=== PATIENT | male | born 1965 | race Caucasian/White ===

== ENCOUNTER → 2018-05-01 19:19 | Outpatient (CLI) | payer MEDICAID, SELFPAY ==
[2018-05-01 19:51] LABS: Basophils # 0.1 K/mm3 (0-0.2); Basophils % 0.8 % (0.1-2.0); Eosinophils # 0.4 K/mm3 (0.0-0.4); Eosinophils % 4.6 % (0.1-12.0); Hematocrit 50.2 % (42.0-52.0); Hemoglobin 16.1 g/dL (14.1-18.0); Lymphocytes # 2.2 K/mm3 (0.7-4.5); Lymphocytes % 23.8 % (10-50); Mean Corpuscular Hemoglobin 29.8 pg (27.0-31.2); Mean Corpuscular Volume 93.2 fl (80-94); Monocytes # 0.6 K/mm3 (0.1-1.0); Monocytes % 6.9 % (1.7-9.3); Neutrophils # 5.9 K/mm3 (1.8-7.8); Neutrophils % 63.8 % (37.0-80.0); Platelet Count 259 K/mm3 (142-424); Red Blood Count 5.39 M/mm3 (4.60-6.20); Red Cell Distribution Width 13.9 % (11.5-17.5); White Blood Count 9.2 K/mm3 (4.8-10.8)
[2018-05-01 20:33] LABS: Alanine Aminotransferase 46 U/L (12-78); Albumin Level 3.8 gm/dL (3.4-5.0); Albumin/Globulin Ratio 0.9 (1.1-1.8); Alkaline Phosphatase 95 U/L (46-116); Anion Gap 11.8 mEq/L (5-15); Aspartate Amino Transferase 22 U/L (15-37); Bilirubin,Total 0.6 mg/dL (0.2-1.0); Blood Urea Nitrogen 17 mg/dL (7-18); Calcium 8.9 mg/dL (8.5-10.1); Carbon Dioxide 32 mmol/L (21.0-32.0); Chloride 100 mmol/L (98-107); Chol/HDL Ratio 3.2 (1-3.5); Cholesterol 168 mg/dL (140-200); Creatinine,Serum 0.85 mg/dL (0.70-1.30); Estimated Glomerular Filt Rate 94 ml/min (>60); GFR (African American) 114 ML/MIN (>60); Globulin 4.2 gm/dl (1.3-3.2); Glucose 84 mg/dL (74-106); HDL Cholesterol 52 mg/dL (27-67); LDL Cholesterol 90 mg/dL (0-130); Potassium 3.8 mmoL/L (3.5-5.1); Sodium 140 mmol/L (136-145); T4 (Thyroxine) 8.8 ug/dl (4.7-13.3); Thyroid Stimulating Hormone 0.87 uIU/ml (0.358-3.740); Triglycerides 130 mg/dL (30-200); VLDL Cholesterol 26 mg/dL (0-40)
[2018-05-03 15:52] LABS: PSA, Free 0.15 ng/mL; Prostate Specific Ag 0.7 ng/mL (0.0-4.0); Vitamin D 25 Hydroxy 26.5 ng/mL (30.0-100.0)
[2018-05-04 12:16] LABS: Testosterone,Free 6.3 pg/mL (7.2-24.0)
== END ==
LOC: LAB 19:19 → LAB.DROPOF 05-02 09:26
PROVIDERS: PCP Physician Assistant; Visit Provider Physician Assistant
DX: E66.01 Morbid (severe) obesity due to excess calories (principal); R53.83 Other fatigue; E55.9 Vitamin D deficiency, unspecified
CPT/HCPCS: 80053; 80061; 82652; 84153; 84154; 84402; 84436; 84443; 85025

== ENCOUNTER → 2019-03-07 13:02 | Outpatient (CLI) | payer BC, SELFPAY ==
--- NOTE | 2019-03-07 13:08 | XR_ITS ---
PROCEDURE: XR KNEE LT 4V CLINICAL INDICATION: knee pain COMPARISON: KNEE3R KNEE-3 VIEWS-RT from 06/10/2015 FINDINGS: No fracture or dislocation. No lytic or blastic change. There is normal mineralization. There are mild tricompartmental osteoarthritic changes greatest at the medial compartment with decrease in the joint space and osteophyte formation. Other findings:None. IMPRESSION: Mild osteoarthritis Dictated by: Chriss Blair MD 03/07/2019 15:09 Electronically signed by Chriss Blair MD in [place] 03/07/2019 15:09
== END ==
PROVIDERS: PCP Emergency Medicine; Visit Provider Orthopaedic Surgery
DX: M25.562 Pain in left knee (principal)
CPT/HCPCS: 73564

== ENCOUNTER → 2019-04-14 16:42 | Outpatient (CLI) | payer BC, SELFPAY ==
[2019-04-14 17:00] LABS: Basophils # 0.1 K/mm3 (0-0.2); Basophils % 0.8 % (0.1-2.0); Eosinophils # 0.5 K/mm3 (0.0-0.4); Eosinophils % 5.2 % (0.1-12.0); Hematocrit 42.4 % (42.0-52.0); Hemoglobin 13.8 g/dL (14.1-18.0); Lymphocytes # 2.2 K/mm3 (0.7-4.5); Lymphocytes % 21.5 % (10-50); Mean Corpuscular HGB Conc 32.4 g/dL (31.8-35.4); Mean Corpuscular Hemoglobin 30.1 pg (27.0-31.2); Mean Corpuscular Volume 92.9 fl (80-94); Mean Platelet Volume 8.6 fl (7.4-10.4); Monocytes # 0.6 K/mm3 (0.1-1.0); Neutrophils # 6.8 K/mm3 (1.8-7.8); Neutrophils % 66.4 % (37.0-80.0); Platelet Count 232 K/mm3 (142-424); Red Blood Count 4.57 M/mm3 (4.60-6.20); Red Cell Distribution Width 13.6 % (11.5-17.5); White Blood Count 10.3 K/mm3 (4.8-10.8)
[2019-04-14 17:31] LABS: Alanine Aminotransferase 26 U/L (12-78); Albumin Level 3.5 gm/dL (3.4-5.0); Alkaline Phosphatase 78 U/L (46-116); Aspartate Amino Transferase 13 U/L (15-37); Bilirubin,Total 0.5 mg/dL (0.2-1.0); Blood Urea Nitrogen 15 mg/dL (7-18); Calcium 8.5 mg/dL (8.5-10.1); Carbon Dioxide 29 mmol/L (21.0-32.0); Chloride 108 mmol/L (98-107); Chol/HDL Ratio 2.7 (1-3.5); Cholesterol 146 mg/dL (140-200); Estimated Glomerular Filt Rate 100 ml/min (>60); GFR (African American) 121 ML/MIN (>60); Globulin 3.6 gm/dl (1.3-3.2); Glucose 127 mg/dL (74-106); HDL Cholesterol 54 mg/dL (27-67); LDL Cholesterol 81 mg/dL (0-130); Sodium 141 mmol/L (136-145); Thyroid Stimulating Hormone 0.61 uIU/ml (0.358-3.740); Total Protein,Serum 7.1 gm/dL (6.4-8.2); Triglycerides 57 mg/dL (30-200); VLDL Cholesterol 11 mg/dL (0-40)
[2019-04-16 08:25] LABS: Vitamin D 25 Hydroxy 28.2 ng/mL (30.0-100.0)
[2019-04-16 11:15] LABS: Hemoglobin A1C 6.3 % (0.0-7.0)
== END ==
PROVIDERS: Visit Provider Physician Assistant
DX: I10 Essential (primary) hypertension (principal); E55.9 Vitamin D deficiency, unspecified; R73.09 Other abnormal glucose
CPT/HCPCS: 80053; 80061; 82652; 83036; 84436; 84443; 85025

== ENCOUNTER → 2019-07-11 09:21 | Outpatient (CLI) | payer BC, SELFPAY ==
--- NOTE | 2019-07-11 09:21 | CA_ITS ---
APPROVED REPORT Cigarette Maker: Eloise Smith RVT Study Quality: Adequate, Due to body habitus. Indications: HTN Risk Factors Hypertension Obesity Renal Artery Doppler Mid (R) 126.2/ cm/sec Distal (R) 71.1/ cm/sec Renal Aorta Ratio (R) 0.96 Segmental A. (R) 51.4/19.6 cm/sec RI: 0.61 Segmental A. Sup (R) 51.4/19.6 cm/sec Segmental A. Mid (R) 51.4/16.8 cm/sec Segmental A. Inf (R) 34.8/13.9 cm/sec Origin (L) 75.3/ cm/sec Proximal (L) 53.0/ cm/sec Mid (L) 79.3/ cm/sec Distal (L) 113.9/ cm/sec Renal Aorta Ratio (L) 0.86 Segmental A. (L) 69.9/18.8 cm/sec RI: 0.73 Segmental A. Sup (L) 69.9/18.8 cm/sec Segmental A. Mid (L) 64.4/25.9 cm/sec Segmental A. Inf (L) 61.3/28.3 cm/sec Renal Measurements Kidney Size (R) 14.5x6.2 cm Cortical Thickness (R) 1.9 cm Kidney Size (L) 13.2x8.6 cm Cortical Thickness (L) 1.5 cm Findings Study suggests no evidence of bilateral renal artery stenosis. Right proximal renal artery was not visualized r/t patient body habitus. Conclusion Study suggests no evidence of bilateral renal artery stenosis. Right proximal renal artery was not visualized r/t patient body habitus. Electronically signed by : Chriss Blair MD 07/11/2019 17:00:31
== END ==
PROVIDERS: PCP Emergency Medicine; Visit Provider Physician Assistant
DX: I10 Essential (primary) hypertension (principal)
CPT/HCPCS: 93976

== ENCOUNTER → 2019-08-29 08:11 | Outpatient (CLI) | payer BC, SELFPAY ==
[2019-08-29 10:46] LABS: Chloride 94 mmol/L (98-107); Sodium 139 mmol/L (136-145)
[2019-08-29 10:47] LABS: Potassium 4.2 mmoL/L (3.5-5.1)
[2019-08-29 10:49] LABS: Blood Urea Nitrogen 17 mg/dl (9-20); Estimated Glomerular Filt Rate 117 ml/min (>60); GFR (African American) 142 ML/MIN (>60)
[2019-08-29 10:50] LABS: Anion Gap 14.2 mEq/L (5-15); Calcium 8.6 mg/dl (8.4-10.2); Carbon Dioxide 35 mmol/L (22.0-30.0); Glucose 149 mg/dl (74-100)
== END ==
PROVIDERS: Visit Provider Internal Medicine Cardiovascular Disease
DX: I10 Essential (primary) hypertension (principal); R06.00 Dyspnea, unspecified; R60.9 Edema, unspecified
CPT/HCPCS: 36415; 80048

== ENCOUNTER → 2019-09-05 08:00 | Outpatient (CLI) | payer BC, SELFPAY ==
--- NOTE | 2019-09-05 08:00 | CA_ITS ---
APPROVED REPORT Drama Critic: Eloise Smith RVT Laterality: Bilateral Study Quality: Good Indications: h/o TIA, CVA/TIA: Risk Factors Hypertension: TIA/CVA History Doppler Spectral Velocity Analysis ECA (R) 72.10/14.10 cm/s ECA (L) 90.40/16.50 cm/s dICA (R) 57.30/21.90 cm/s dICA (L) 67.40/28.60 cm/s Jarrett (R) 70.80/28.40 cm/s Jarrett (L) 66.20/24.70 cm/s pICA (R) 63.60/20.30 cm/s pICA (L) 57.30/24.20 cm/s dCCA (R) 67.90/15.50 cm/s dCCA (L) 72.10/27.20 cm/s pCCA (R) 73.10/13.70 cm/s pCCA (L) 72.10/12.10 cm/s Vert (R) 28.80/12.10 cm/s Vert (L) 25.60/6.90 cm/s ICA/CCA 1.04 ICA/CCA 0.93 Findings Study suggests less than 20% stenosis of the right internal cartoid artery. Study suggests less than 20% stenosis of the left internal cartoid artery, Antegrade flow seen bilateral vertebral arteries. Conclusion No increased velocities to suggest hemodynamically significant stenosis in either internal carotid artery. Electronically signed by : Chriss Blair MD 09/05/2019 13:36:07
== END ==
PROVIDERS: PCP Emergency Medicine; Visit Provider Internal Medicine Cardiovascular Disease
DX: I10 Essential (primary) hypertension (principal); R06.00 Dyspnea, unspecified; R60.9 Edema, unspecified; Z86.73 Personal history of transient ischemic attack (TIA), and cerebral infarction without residual deficits
CPT/HCPCS: 93306; 93880

== ENCOUNTER 2019-11-05 05:14 | Emergency (ER) | payer BC, SELFPAY ==
[2019-11-05] VITALS (11 sets, daily range): BP systolic 85–133; BP diastolic 47–74; PULSE 74–105; RESP 17–19; TEMP 36.6–36.8; O2SAT 92–98; BMI 50.9
--- NOTE | 2019-11-05 05:26 | ECG_ITS ---
APPROVED REPORT Exam: Resting ECG HR:112 bpm ECG Measurements Heart Rate 112 AXES NM 136 P 42 QRSd 82 QRS 17 QT 336 T 51 QTc 458 <Conclusion> Sinus tachycardia Otherwise normal ECG Electronically signed by : Eliel Raphael, 11/06/2019 05:55:12
--- NOTE | 2019-11-05 05:38 | PC.NURSE ---
Talked with Angelina with poison control. Recommended observation for 6 hours from the time the medication was taken at 0415, IV fluids and a vasopresser if necessary.
--- NOTE | 2019-11-05 05:44 | XR_ITS ---
PROCEDURE: XR CHEST PORTABLE CLINICAL HISTORY: overdose on bp meds COMPARISON: No exams were available for comparison FINDINGS: There is mild cardiomegaly without failure. The lungs are clear without infiltrates, suspicious nodules, or pleural effusions. No acute bony abnormalities. IMPRESSION: Cardiomegaly otherwise negative Dictated by: Chriss Blair MD 11/05/2019 07:30 Electronically signed by Chriss Blair MD in [place] 11/05/2019 07:30
[2019-11-05 06:12] LABS: Basophils # 0.2 K/mm3 (0-0.2); Basophils % 1.7 % (0.1-2.0); Eosinophils # 0.3 K/mm3 (0.0-0.4); Eosinophils % 3.5 % (0.1-12.0); Hematocrit 47.9 % (42.0-52.0); Hemoglobin 14.6 g/dL (14.1-18.0); Lymphocytes # 1.6 K/mm3 (0.7-4.5); Mean Corpuscular HGB Conc 30.5 g/dL (31.8-35.4); Mean Corpuscular Hemoglobin 28.2 pg (27.0-31.2); Mean Corpuscular Volume 92.4 fl (80-94); Mean Platelet Volume 8.9 fl (7.4-10.4); Monocytes # 0.8 K/mm3 (0.1-1.0); Monocytes % 8.8 % (1.7-9.3); Neutrophils # 6.4 K/mm3 (1.8-7.8); Platelet Count 262 K/mm3 (142-424); Red Blood Count 5.18 M/mm3 (4.60-6.20); Red Cell Distribution Width 15.2 % (11.5-17.5); White Blood Count 9.2 K/mm3 (4.8-10.8)
[2019-11-05 06:15] LABS: Chloride 100 mmol/L (98-107); Potassium 3.8 mmoL/L (3.5-5.1); Sodium 140 mmol/L (136-145)
[2019-11-05 06:17] LABS: Alanine Aminotransferase 35 U/L (12-78); Aspartate Amino Transferase 24 U/L (17-59); Blood Urea Nitrogen 17 mg/dl (9-20); Creatinine Clearance Estimated 104 mL/min (50-200); Estimated Glomerular Filt Rate 100 ml/min (>60); GFR (African American) 121 ML/MIN (>60)
[2019-11-05 06:18] LABS: Albumin Level 3.9 g/dl (3.5-5.0); Albumin/Globulin Ratio 1.1 (1.1-1.8); Alkaline Phosphatase 84 U/L (38-126); Anion Gap 7.8 mEq/L (5-15); Bilirubin,Total 0.5 mg/dl (0.2-1.3); Calcium 8.8 mg/dl (8.4-10.2); Carbon Dioxide 36 mmol/L (22.0-30.0); Globulin 3.6 g/dL (1.3-3.2); Glucose 164 mg/dl (74-100); Total Protein,Serum 7.5 g/dl (6.3-8.2)
[2019-11-05 06:33] LABS: Troponin I < 0.01 ng/ml (0.00-0.034)
[2019-11-05 06:34] LABS: Acetaminophen < 10 ug/ml (10-30); Salicylate < 1.0 mg/dL (2.0-20.0)
--- NOTE | 2019-11-05 06:47 | PC.NURSE ---
pt sleeping at this time. discussed length of stay with family. understanding with leaving at 1030 if no new symptoms.
--- NOTE | 2019-11-05 06:48 | HMH.EDOD ---
ED Disposition Clinical Impression: Accidental drug ingestion Qualifiers: Encounter type: initial encounter Qualified Code(s): T50.901A - Poisoning by unspecified drugs, medicaments and biological substances, accidental (unintentional), initial encounter Obesity Qualifiers: Obesity type: due to excess calories Obesity classification: adult class 3 (BMI >= 40) Serious obesity comorbidity presence: with serious comorbidity Body mass index: BMI 50.0-59.9 Qualified Code(s): E66.01 - Morbid (severe) obesity due to excess calories; Z68.43 - Body mass index (BMI) 50.0-59.9, adult Disposition: Home, Self-Care Condition on Discharge: Good Instructions: DI for Drug Overdose in Adults Additional Instructions: call pcp for follow up Referrals: Carol Chin PA [Primary Care Provider] - - Critical Care Critical Care Time: No Attestation: On 11/05/19, the high probability of a clinically significant, sudden or life threatening deterioration of the following system(s) required my full and direct attention, intervention and personal management. The time I documented below is in addition to time spent performing reported procedures but includes the following listed in this critical care notation. Medical Decision Making - Medical Records Medical records reviewed: Yes: I reviewed the patient's medical records. - Scooter Inquiry Pt receiving controlled substance: No Vital Signs: 11/05/19 05:36 11/05/19 05:47 11/05/19 06:10 Temperature 98.3 F Temperature Source Oral Pulse Rate [Right Brachial] 84 87 85 Respiratory Rate 17 19 18 Blood Pressure [Right Arm] 95/54 L 85/47 L 104/64 L Blood Pressure Mean [Right Arm] 67 59 77 Blood Pressure Source [Right Arm] Automatic Cuff Automatic Cuff Blood Pressure Position [Right Arm] Sitting Sitting 02 Sat by Pulse Oximetry 94 L 95 93 L Oxygen Delivery Method Room Air Room Air Room Air 11/05/19 06:30 11/05/19 06:35 11/05/19 06:44 Temperature Temperature Source Pulse Rate [Right Brachial] 98 H 93 H 102 H Respiratory Rate 18 18 Blood Pressure [Right Arm] 118/66 108/57 L 108/57 L Blood Pressure Mean [Right Arm] 83 74 74 Blood Pressure Source [Right Arm] Automatic Cuff Automatic Cuff Blood Pressure Position [Right Arm] Sitting Sitting 02 Sat by Pulse Oximetry 94 L 92 L 96 Oxygen Delivery Method Room Air Room Air Room Air 11/05/19 06:52 11/05/19 07:35 11/05/19 07:55 Temperature Temperature Source Pulse Rate [Right Brachial] 90 100 H 90 Respiratory Rate 18 Blood Pressure [Right Arm] 112/69 133/56 L 105/53 L Blood Pressure Mean [Right Arm] 83 81 70 Blood Pressure Source [Right Arm] Automatic Cuff Automatic Cuff Blood Pressure Position [Right Arm] Sitting Sitting 02 Sat by Pulse Oximetry 92 L 95 96 Oxygen Delivery Method Room Air Room Air Room Air - Lab Data Lab results reviewed: Yes: I reviewed the patient's lab results. Lab Results 11/05/19 05:32: WBC 9.2, RBC 5.18, Hgb 14.6, Hct 47.9, MCV 92.4, MCH 28.2, MCHC 30.5 L, RDW 15.2, Plt Count 262, MPV 8.9, Neut % (Auto) 69.0, Lymph % (Auto) 17.0, Pickett % (Auto) 8.8, Eos % (Auto) 3.5, Baso % (Auto) 1.7, Neut # (Auto) 6.4, Lymph # (Auto) 1.6, Pickett # (Auto) 0.8, Eos # (Auto) 0.3, Baso # (Auto) 0.2 11/05/19 05:32: Sodium 140, Potassium 3.8, Chloride 100, Carbon Dioxide 36 H, Anion Gap 7.8, BUN 17, Creatinine 0.80, Estimated Creat Clear 104, Estimated GFR 100, Est GFR ( Amer) 121, Glucose 164 H, Calcium 8.8, Total Bilirubin 0.5, AST 24, ALT 35, Alkaline Phosphatase 84, Troponin I < 0.01, Total Protein 7.5, Albumin 3.9, Globulin 3.6 H, Albumin/Globulin Ratio 1.1, Salicylates < 1.0 L, Acetaminophen < 10 L Result diagrams: 11/05/19 05:32 11/05/19 05:32 Orders (Tests/Meds): ED MEDICATIONS Discontinued Medications Generic Name Dose Route Start Last Admin Trade Name Freq PRN Reason Stop Dose Admin Sodium Chloride 1,000 mls @ 999 mls/hr 11/05/19 06:00 11/05/19 06:49 Sod Chlor 0.9% 1000ml
--- NOTE | 2019-11-05 07:30 | PC.NURSE ---
at bedside. pt sleeping easily aroused. offers no c/o at present
--- NOTE | 2019-11-05 08:15 | PC.NURSE ---
spoke with Ro at Poison control at this time she was calling to check on pt and get an update
--- NOTE | 2019-11-05 08:16 | PC.NURSE ---
pt given breakfast tray and coffee at this time, pt notified of tray pt went back to sleep
--- NOTE | 2019-11-05 08:36 | PC.NURSE ---
Pt sitting up eating at this time.
[2019-11-05 09:35] LABS: Troponin I < 0.01 ng/ml (0.00-0.034)
--- NOTE | 2019-11-05 09:45 | PC.NURSE ---
Pt sleeping at this time but is easily woken up. Complains of being uncomfortable in the bed but adjusts himself and falls back asleep.
== END 2019-11-05 10:40 | disposition home or self-care (01) ==
PROVIDERS: Emergency Provider Emergency Medicine; PCP Physician Assistant
DX: T44.6X1A Poisoning by alpha-adrenoreceptor antagonists, accidental (unintentional), initial encounter (principal); Y92.019 Unspecified place in single-family (private) house as the place of occurrence of the external cause; E66.01 Morbid (severe) obesity due to excess calories; Z68.43 Body mass index [BMI] 50.0-59.9, adult; I10 Essential (primary) hypertension; E55.9 Vitamin D deficiency, unspecified
CPT/HCPCS: 36415; 71045; 80053; 80329; 84484; 85025; 93005; 96365; 96366; 96367; 99284

== ENCOUNTER → 2019-11-28 09:46 | Outpatient (CLI) | payer BC, SELFPAY | PROVIDERS: PCP Physician Assistant; Visit Provider Physician Assistant | DX: G47.33 Obstructive sleep apnea (adult) (pediatric) (principal); R06.83 Snoring; R40.0 Somnolence; R60.9 Edema, unspecified | CPT/HCPCS: G0399 ==

== ENCOUNTER 2020-12-27 12:46 | Emergency (ER) | payer MEDICAID, SELFPAY ==
[2020-12-27 12:50] VITALS: BP 155/98; PULSE 97; RESP 16; TEMP 36.9; O2SAT 96; BMI 51.7
--- NOTE | 2020-12-27 12:55 | XR_ITS ---
PROCEDURE: XR SHOULDER RT MIN 2V CLINICAL INDICATION: FALL Posttraumatic pain COMPARISON: CR XR CHEST PORTABLE from 11/05/2019 FINDINGS: No fracture or dislocation. No lytic or blastic change. There is normal mineralization. Osteoarthritic changes are present at the acromioclavicular and glenohumeral joint. No significant subacromial stenosis. There could be impingement upon the supraspinatus tendon by bony hypertrophy at the head of the clavicle. There is some minimal cortical irregularity of the base of the greater tuberosity. A faint calcific density overlies the proximal humeral shaft could represent a loose body or soft tissue calcification and versus bony sclerosis. Other findings:None. IMPRESSION: Mild degenerative changes with nonspecific calcific density overlying the proximal humerus Dictated by: Chriss Blair MD 12/27/2020 13:30 Chriss Blair MD in [place] 12/27/2020 13:30
[2020-12-27 13:05] VITALS: BP 155/98; PULSE 97; RESP 16; TEMP 36.9; O2SAT 96; BMI 51.5
--- NOTE | 2020-12-27 13:29 | HMH.EDUTC ---
[facility] [place] Clinical Impression: Shoulder pain Qualifiers: Chronicity: unspecified Laterality: right Qualified Code(s): M25.511 - Pain in right shoulder Disposition: Home, Self-Care Condition on Discharge: Good Instructions: DI for Shoulder Pain, Methocarbamol Additional Instructions: *Etodolac cooper 8 hours with meal as needed for pain/inflammation *Not additional anti-inflammatory like motrin, aleve, advil with the above amount of ibuprofen. You can still take Tylenol every 4 hours as needed if you need something else for pain *Ice 20 minutes every 2 hours for the first 48 hours after the initial injury followed by moist heat every 20 minutes 3-4 times a day to affected area *Muscle relaxer as prescribed as needed for muscle spasms but remember, it WILL cause drowsiness You cannot take it and drive, operate machinery or care for small children. *Keep this area active, no movement leads to more stiffness, However take it easy and avoid heavy lifting pushing or pulling *Follow up with you family doctor if no improvement for further treatment Prescriptions: Etodolac 200 mg PO Q8HP PRN #20 cap PRN Reason: Moderate Pain Transmission Status: Received by [facility] #[id number] methocarbamoL [Methocarbamol] 750 mg PO BID PRN #10 tab PRN Reason: Muscle Spasm Transmission Status: Received by [facility] #[id number] Referrals: Carol Chin PA [Primary Care Provider] - As needed Time of Disposition: 13:54 Medical Decision Making - Scooter Inquiry Pt receiving controlled substance: No Scooter was queried for this patient: No Vital Signs: 12/27/20 12:50 12/27/20 13:05 12/27/20 13:51 Temperature 98.4 F 98.4 F 98.4 F Temperature Source Oral Oral Pulse Rate 97 H Pulse Rate [Left Radial] 97 H 97 H Respiratory Rate 16 16 16 Blood Pressure 155/98 H Blood Pressure [Left Arm] 155/98 H 155/98 H Blood Pressure Mean [Left Arm] 117 117 Blood Pressure Source [Left Arm] Automatic Cuff Automatic Cuff Blood Pressure Position [Left Arm] Sitting Sitting 02 Sat by Pulse Oximetry 96 96 Oxygen Delivery Method Room Air Room Air - Radiology Data #1 Image(s): Shoulder Image Reviewed: Yes I have reviewed radiologist's interpretation Mild degenerative changes with nonspecific calcific density overlying the proximal humerus [facility] [place] [facility] [place] - General Stated complaint: fall 06/25 rt shoulder pain Time Seen by Provider: 12/27/20 13:29 Mode of Arrival: Ambulatory Source of Information: Patient Limitations: No Limitations Description of Symptoms (Recalled from Triage Doc. by RN): pt c/o R shoulder pain, pt reports initially injured R shoulder on 06/25/20 r/t a fall. Pt reports he had improved but states in the past couple of weeks he has been having more pain, decreased ROM and feels like there a knots in R shoulder area. - History of Present Illness Provider Complaint: Patient state thats he fell back in Jun and hurt his shoulder but it has been doing better State that for the last couple of weeks he has been having pain in his shoulder and it is worse with movement and feels like he has knots in there and feels sore and having spasms States that he has not done anything to hurt it that he is aware of but has been working more than normal at the factory - Related Data Home Medications Medication Instructions Recorded Confirmed Vitamin B Complex Vit C No.3 [B 1 cap PO DAILY 11/05/19 10/13/20 Complex Plus Vitamin C] Previous Rx's Medication Instructions Recorded amlodipine 5 mg tablet 5 mg PO DAILY #90 tab 06/24/20 losartan 100 1 tab PO DAILY #90 tab 06/24/20 mg-hydrochlorothiazide 25 mg tablet metoprolol succinate 100 mg 100 mg PO DAILY #90 tab 06/24/20 tablet,extended release 24 hr phentermine 37.5 mg tablet 37.5 mg PO DAILY #30 tab 10/13/20 spironolactone 25 mg tablet 25 mg PO DAILY #90 tab 10/13/20 testosterone cypionate 200 mg/mL 200 mg IM Q4W #1 ml 10/13/20 intramuscular oil a
[2020-12-27 13:51] VITALS: BP 155/98; PULSE 97; RESP 16; TEMP 36.9; O2SAT 96
== END 2020-12-27 14:05 | disposition home or self-care (01) ==
LOC: ER 12:55 → UTC 12:55
PROVIDERS: Emergency Provider Nurse Practitioner; PCP Physician Assistant
DX: M25.511 Pain in right shoulder (principal); W19.XXXA Unspecified fall, initial encounter; I10 Essential (primary) hypertension; J45.909 Unspecified asthma, uncomplicated; Z79.899 Other long term (current) drug therapy
CPT/HCPCS: 73030; 99202; G0463

== ENCOUNTER → 2022-06-28 16:10 | Outpatient (CLI) | payer MEDICAID, SELFPAY ==
[2022-06-28 20:03] LABS: Basophils # 0.1 K/mm3 (0-0.2); Basophils % 0.8 % (0.1-2.0); Eosinophils # 0.7 K/mm3 (0.0-0.4); Hematocrit 46.5 % (42.0-52.0); Hemoglobin 15.3 g/dL (14.1-18.0); Lymphocytes # 3.2 K/mm3 (0.7-4.5); Lymphocytes % 23.7 % (10-50); Mean Corpuscular Hemoglobin 30.1 pg (27.0-31.2); Mean Corpuscular Volume 91.3 fl (80-94); Mean Platelet Volume 8.7 fl (7.4-10.4); Monocytes % 7.8 % (1.7-9.3); Neutrophils # 8.3 K/mm3 (1.8-7.8); Neutrophils % 62.7 % (37.0-80.0); Platelet Count 379 K/mm3 (142-424); Red Blood Count 5.09 M/mm3 (4.60-6.20); Red Cell Distribution Width 13.9 % (11.5-17.5); White Blood Count 13.3 K/mm3 (4.8-10.8)
[2022-06-28 20:16] LABS: Chloride 102 mmol/L (98-107); Potassium 3.9 mmoL/L (3.5-5.1); Sodium 138 mmol/L (136-145)
[2022-06-28 20:18] LABS: Alanine Aminotransferase 35 U/L (12-78); Alkaline Phosphatase 109 U/L (38-126); Aspartate Amino Transferase 31 U/L (17-59); Bilirubin,Total 0.7 mg/dl (0.2-1.3); Blood Urea Nitrogen 18 mg/dl (9-20); Estimated Glomerular Filt Rate 99 ml/min (>60); GFR (African American) 120 ML/MIN (>60)
[2022-06-28 20:19] LABS: Albumin/Globulin Ratio 1.2 (1.1-1.8); Anion Gap 12.9 mEq/L (5-15); Calcium 8.7 mg/dl (8.4-10.2); Carbon Dioxide 27 mmol/L (22.0-30.0); Chol/HDL Ratio 4.3 (1-3.5); Cholesterol 181 mg/dl (140-200); Globulin 3.4 g/dL (1.3-3.2); Glucose 120 mg/dl (74-100); HDL Cholesterol 42 mg/dl (40-60); Total Protein,Serum 7.4 g/dl (6.3-8.2); Triglycerides 296 mg/dl (30-150); VLDL Cholesterol 59 mg/dL (0-40)
[2022-06-28 20:31] LABS: Direct LDL Cholesterol 96.27 mg/dL (100-129)
[2022-06-28 20:36] LABS: 25-OH Vitamin D, Total 17.5 ng/mL (30-100)
[2022-06-28 20:52] LABS: Microalbumin/Creatinine Ratio 5.3; Prostate Specific Ag Screen 1.3 ng/ml (0.0-4.0)
[2022-06-28 21:02] LABS: Creatinine,Urine Random 173 mg/dL (Not Estab.); Hemoglobin A1C 6.4 % (4.0-6.0)
[2022-06-28 21:11] LABS: Vitamin B12 823 pg/mL (239-931)
== END ==
PROVIDERS: PCP Physician Assistant; Visit Provider Physician Assistant
DX: I10 Essential (primary) hypertension (principal); E55.9 Vitamin D deficiency, unspecified; E66.01 Morbid (severe) obesity due to excess calories; Z68.43 Body mass index [BMI] 50.0-59.9, adult; Z79.899 Other long term (current) drug therapy; Z12.5 Encounter for screening for malignant neoplasm of prostate
CPT/HCPCS: 80053; 80061; 82043; 82306; 82570; 82607; 83036; 84443; 85025; G0103

== ENCOUNTER 2022-07-19 07:53 | Emergency (ER) | payer MEDICAID, SELFPAY ==
[2022-07-19 08:00] VITALS: BP 139/86; PULSE 84; RESP 17; TEMP 36.9; O2SAT 97; BMI 47.4
--- NOTE | 2022-07-19 08:03 | XR_ITS ---
FINAL REPORT TECHNIQUE: Two views CLINICAL HISTORY: SOA COMPARISON: 11/05/2019 FINDINGS: No acute pulmonary density is present. Mediastinal contour is normal. Heart size is stable. IMPRESSION: Stable chest exam without acute disease Reviewed, Interpreted and Dictated by Eduardo Lovell MD Transcribed by Michelle Rodriguez Authenticated and [facility]
--- NOTE | 2022-07-19 08:03 | PC.NURSE ---
CAROLINE GOMEZ at
--- NOTE | 2022-07-19 08:05 | HMH.EDGENADL ---
Discharge Plan Disposition Patient Disposition: Home, Self-Care Condition: Good Prescriptions Prescriptions: No Action metoprolol succinate 100 mg tablet extended release 24 hr 100 mg PO DAILY Qty: 90 3RF amlodipine 5 mg tablet 5 mg PO DAILY Qty: 90 3RF losartan-hydrochlorothiazide 100-25 mg tablet 1 tab PO DAILY Qty: 90 3RF methocarbamol 750 mg tablet 750 mg PO BID PRN (Reason: Muscle Spasm) Qty: 20 0RF cyclobenzaprine 10 mg tablet 10 mg PO HS Qty: 30 0RF Rybelsus 7 mg tablet 7 mg PO DAILY Qty: 30 2RF diclofenac sodium [Voltaren Arthritis Pain] 1 % gel 2 g topical QID Qty: 100 2RF Rx Instructions: apply to single elbow, wrist or hand; for hand includes palm/fingers/back of hand cholecalciferol (vitamin D3) 1,250 mcg (50,000 unit) capsule 1,250 mcg PO WEEKLY Qty: 14 3RF vitamin B comp and C no.3 99-29-35-5-300 mg capsule 1 cap PO DAILY Qty: 90 0RF Rx Instructions: give with food (meal/snack) phentermine [Adipex-P] 37.5 mg tablet 37.5 mg PO DAILY Qty: 30 0RF Rx Instructions: must administer 30 minutes before or 1-2 hours after breakfast testosterone cypionate 200 mg/mL oil 200 mg IM Q4W Qty: 1 5RF spironolactone 25 mg tablet See Rx Instructions .ROUTE .COMPLEX Qty: 90 0RF Dose Instruction: TAKE 1 TABLET BY MOUTH DAILY Rx Instructions: TAKE 1 TABLET BY MOUTH DAILY albuterol sulfate 90 mcg/actuation HFA aerosol inhaler See Rx Instructions .ROUTE .COMPLEX Qty: 8.5 0RF Dose Instruction: INHALE 2 PUFFS BY MOUTH EVERY 4 TO 6 HOURS NEEDED FOR SHORTNESS OF BREATH OR WHEEZING Rx Instructions: INHALE 2 PUFFS BY MOUTH EVERY 4 TO 6 HOURS NEEDED FOR SHORTNESS OF BREATH OR WHEEZING Ozempic 0.25 mg or 0.5 mg(2 mg/1.5 mL) pen injector 0.25 mg SQ WEEKLY Qty: 1.5 3RF Rx Instructions: for 4 doses Referrals Follow up/Referrals: Carol Chin PA [Primary Care Provider] - See instructions Activity Restrictions/Add. Instructions Additional Instructions/Restrictions: You were evaluated in the emergency department today. Please follow-up with your primary care provider over the next 48 hours. Return to the emergency department for any new or worsening symptoms. Clinical Impressions Clinical Impression: Chest tightness, Obesity Instructions Patient Instructions: DI for Atypical Chest Pain, DI for Shortness of Breath Discharge ED Provider: Do Jacobson General Adult HPI General Chief complaint: Shortness of Breath/Dyspnea Stated complaint: SOA Time Seen by Provider: 07/19/22 07:58 Mode of Arrival: Ambulatory Source of Information: Patient and Spouse Limitations: No Limitations Description of Symptoms (Recalled from ER Triage Doc. by RN): Pt reports difficulty taking a deep breath for three days; denies dyspnea per se, cough, fever or chest pain, NAD History of Present Illness HPI narrative: This patient is a 57-year-old male with a history of obesity, severe sleep apnea, carotid stenosis, hypertension, and prediabetes presenting to the emergency department for evaluation with concern that it feels difficult to take a deep breath. He states that this has been going on for approximately 3 days. He denies experiencing anything like this in the past. He denies any history of cardiopulmonary issues, blood clots, clotting disorders, or other concerns. He states that he does not have any pain associated with this, and he does not necessarily feel short of breath. He states that it just feels like his rib cage is tight and he is having trouble getting air all the way in. Of note, he does state that they recently changed his CPAP settings and he feels like it is not working right. He denies any fevers, chills, cough, congestion, chest pain, abdominal pain, nausea, vomiting, changes in bowel movements, rashes, or swelling. Related Data Previous Rx's Medication Instructions Recorded amlodipine 5 m
--- NOTE | 2022-07-19 08:09 | ECG_ITS ---
APPROVED REPORT Exam: Resting ECG HR:75 bpm ECG Measurements Heart Rate 75 AXES AL 151 P 50 QRSd 104 QRS 36 QT 377 T 67 QTc 406 Conclusion SINUS RHYTHM NORMAL ECG UNCONFIRMED REPORT Electronically signed by : Eliel Raphael MD 07/19/2022 17:36:50
--- NOTE | 2022-07-19 08:11 | PC.NURSE ---
pt ambulatory to radiology with alignment technician
[2022-07-19 08:30] VITALS: BP 121/76; PULSE 78; O2SAT 96
[2022-07-19 08:39] LABS: Basophils # 0.1 K/mm3 (0-0.2); Basophils % 1.1 % (0.1-2.0); Eosinophils # 0.5 K/mm3 (0.0-0.4); Eosinophils % 4.5 % (0.1-12.0); Hematocrit 47.4 % (42.0-52.0); Lymphocytes % 17.7 % (10-50); Mean Corpuscular HGB Conc 33.7 g/dL (31.8-35.4); Mean Corpuscular Hemoglobin 30.5 pg (27.0-31.2); Mean Corpuscular Volume 90.4 fl (80-94); Mean Platelet Volume 8.3 fl (7.4-10.4); Monocytes # 0.8 K/mm3 (0.1-1.0); Monocytes % 6.9 % (1.7-9.3); Neutrophils # 7.7 K/mm3 (1.8-7.8); Neutrophils % 69.8 % (37.0-80.0); Platelet Count 309 K/mm3 (142-424); Red Blood Count 5.24 M/mm3 (4.60-6.20); Red Cell Distribution Width 13.9 % (11.5-17.5)
[2022-07-19 08:45] LABS: Alanine Aminotransferase 38 U/L (12-78); Albumin Level 4.5 g/dl (3.5-5.0); Albumin/Globulin Ratio 1.2 (1.1-1.8); Alkaline Phosphatase 85 U/L (38-126); Anion Gap 10.8 mEq/L (5-15); Aspartate Amino Transferase 36 U/L (17-59); Bilirubin,Total 0.7 mg/dl (0.2-1.3); Blood Urea Nitrogen 18 mg/dl (9-20); Calcium 9.1 mg/dl (8.4-10.2); Carbon Dioxide 30 mmol/L (22.0-30.0); Chloride 102 mmol/L (98-107); Creatinine Clearance Estimated 89 mL/min (50-200); Estimated Glomerular Filt Rate 87 ml/min (>60); GFR (African American) 105 ML/MIN (>60); Globulin 3.9 g/dL (1.3-3.2); Glucose 126 mg/dl (74-100); Potassium 3.8 mmoL/L (3.5-5.1); Sodium 139 mmol/L (136-145); Total Protein,Serum 8.4 g/dl (6.3-8.2)
--- NOTE | 2022-07-19 08:45 | PC.NURSE ---
pt given tv remote and reports no other needs at this time, family at BS
[2022-07-19 08:54] LABS: NT Pro Brain Natriuretic Pep. 28.6 pg/mL (0-125)
[2022-07-19 08:59] LABS: Troponin I < 0.01 ng/ml (0.00-0.034)
[2022-07-19 09:04] LABS: Free T4 (Free Thyroxine) 1.34 ng/dl (0.78-2.19)
[2022-07-19 09:17] LABS: Thyroid Stimulating Hormone 1.51 uIU/mL (0.465-4.68)
--- NOTE | 2022-07-19 09:25 | PC.NURSE ---
rounded on patient, gave patient some water- okay's by CAROLINE GOMEZ. pt sitting up in chair at BS, no other needs at this time. family at BS
--- NOTE | 2022-07-19 09:33 | PC.NURSE ---
CAROLINE GOMEZ at for update on POC
[2022-07-19 09:50] VITALS: BP 120/67; PULSE 74; RESP 18; TEMP 36.7; O2SAT 95
== END 2022-07-19 09:50 | disposition home or self-care (01) ==
PROVIDERS: Emergency Provider Emergency Medicine; PCP Physician Assistant
DX: R07.89 Other chest pain (principal); E66.9 Obesity, unspecified; I10 Essential (primary) hypertension; R73.03 Prediabetes; I65.29 Occlusion and stenosis of unspecified carotid artery; G47.30 Sleep apnea, unspecified
CPT/HCPCS: 71046; 80053; 83735; 83880; 84439; 84443; 84484; 85025; 93005; 99285